=== PATIENT | male | born 1995 | race Caucasian/White ===

== ENCOUNTER 2021-06-21 21:05 | Emergency (ER) | payer MEDICAID, SELFPAY ==
[2021-06-21 21:46] VITALS: BP 122/79; PULSE 72; RESP 16; TEMP 36.8; O2SAT 99; BMI 21.7
[2021-06-21 23:31] VITALS: BP 116/57; PULSE 59; RESP 18; O2SAT 98
--- NOTE | 2021-06-22 03:10 | ED.PSYCH ---
HPI - Psych General Chief Complaint: Psychiatric Symptoms Stated Complaint: Crisis Time Seen by Provider: 06/22/21 03:09 Source: patient and family Mode of arrival: ambulatory History of Present Illness HPI Narrative: 26-year-old male presents without any significant past medical history of depression, suicidal ideation or suicide attempt and denies any auditory/visual hallucinations or suicidal ideation and states that lately he is had increased feelings of sadness, no energy to do anything, crying all the time, in states he has never felt like this before. Patient states that the symptoms started approximately 1.5 months ago and says that there is a lot of things going on in his life that he is unwilling to discuss at present. Related Data Allergies Allergy/AdvReac Type Severity Reaction Status Date / Time seasonal Allergy Unknown Uncoded 10/30/13 00:00 SEASONAL ALLERGIES Allergy Unknown UNKNOWN Uncoded 11/08/19 16:34 Review of Systems Review of Systems: Pertinent positives and negatives as stated in HPI 10 point review of systems otherwise negative. PMFSH Past Medical History Source: nursing notes reviewed Medical History No known health problems Social History Social History Advance Directives: No Advance Directives Information Provided: No Physical Exam Vital Signs: Vital Signs: Last Vital Signs Temp 98.3 F 06/21/21 21:46 Pulse 59 06/21/21 23:31 Resp 18 06/21/21 23:31 BP 116/57 L 06/21/21 23:31 Pulse Ox 98 06/21/21 23:31 BMI result Body Mass Index 21.7 VITAL SIGNS: Reviewed. GENERAL: Well developed, well nourished, in no acute distress. HEAD: Normocephalic/atraumatic EYES: PERRLA, EOMI EARS: Ext canals without abnormality OROPHARYNX: no oral lesions noted, posterior pharynx clear LUNGS: Normal breath sounds. No adventitious sounds or accessory muscle use. SpO2<98> CARDIOVASCULAR: Regular rate and rhythm without noted murmurs ABDOMEN: Soft, non-tender, non-distended with bowel sounds. MUSCULOSKELETAL: No tenderness, deformities, or effusions noted on gross inspection. EXTREMITIES: No cyanosis, clubbing or edema. SKIN: Inspection of the skin reveals no rashes NEUROLOGIC: Alert and oriented x 4. Strength and sensation to light touch were grossly intact x 4, cranial nerves 2-12 grossly intact. PSYCH: Depressed affect, tearful Course Course Course Narrative: 26-year-old male with history and clinical presentation consistent with progressive and worsening depression without suicidal ideation or AVH. Patient denies suicidal ideation present and is requesting to speak with a therapist. Reevaluation(s) Reevaluation #1: Patient placed in physician observation because the patient needed more time for evaluation by the crisis team. At the time observation was started the patient's vital signs were stable, patient is alert and oriented, neuro: Nonfocal, CV RRR, lungs clear Time: 04:09 MDM - Psych Lab Data Labs: Lab Results 06/22/21 Range/Units 03:28 Urine Fentanyl Screen Not Detected (Not Detect) Ur Barbiturates Screen Not Detected (Not Detect) Ur Phencyclidine Scrn Not Detected (Not Detect) Ur Amphetamines Screen Not Detected (Not Detect) U Benzodiazepines Scrn Not Detected (Not Detect) Urine Cocaine Screen Not Detected (Not Detect) U Marijuana (THC) Screen POSITIVE H (Not Detect) Discharge Plan Discharge Clinical Impression: Depression Patient Disposition: Still a Patient
[2021-06-22 03:50] LABS: Fentanyl, urine Not Detected (Not Detect)
[2021-06-22 03:56] LABS: Amphetamine Screen Urine Not Detected (Not Detect); Barbiturates, Urine Not Detected (Not Detect); Benzodiazepines Screen Urine Not Detected (Not Detect); Cannabinoid Screen Urine POSITIVE (Not Detect); Cocaine Screen Urine Not Detected (Not Detect); Phencyclidine Screen Urine Not Detected (Not Detect)
--- NOTE | 2021-06-22 08:02 | MHC.CARE ---
Pt was discharged prior to consult.
[2021-06-22 14:41] LABS: Opiate Screen Urine Not Detected (Not Detect)
== END 2021-06-22 05:27 | disposition home or self-care (01) ==
PROVIDERS: Emergency Provider Student in an Organized Health Care Education/Training Program
DX: F32.A Depression, unspecified (principal)
CPT/HCPCS: 80307; 99284

== ENCOUNTER 2022-07-15 14:48 | Outpatient (REF) | payer MEDICAID, SELFPAY ==
--- NOTE | ~2022-07-15 | XR_ITS ---
EXAMINATION: Left clavicle, left scapula and left shoulder x-rays CLINICAL INFORMATION: Pain post fall 2 months ago COMPARISON: None. TECHNIQUE: 2 views of the left clavicle, 2 views of the left scapula and 4 views of the left shoulder FINDINGS: Bone alignment is normal. No fracture or dislocation. The glenohumeral joint is normal. Soft tissues are normal. XR/XR scapula LT IMPRESSION: Unremarkable examination.
--- NOTE | ~2022-07-15 | XR_ITS ---
EXAMINATION: Left clavicle, left scapula and left shoulder x-rays CLINICAL INFORMATION: Pain post fall 2 months ago COMPARISON: None. TECHNIQUE: 2 views of the left clavicle, 2 views of the left scapula and 4 views of the left shoulder FINDINGS: Bone alignment is normal. No fracture or dislocation. The glenohumeral joint is normal. Soft tissues are normal. XR/XR shoulder LT min 2V IMPRESSION: Unremarkable examination.
--- NOTE | ~2022-07-15 | XR_ITS ---
EXAMINATION: Left clavicle, left scapula and left shoulder x-rays CLINICAL INFORMATION: Pain post fall 2 months ago COMPARISON: None. TECHNIQUE: 2 views of the left clavicle, 2 views of the left scapula and 4 views of the left shoulder FINDINGS: Bone alignment is normal. No fracture or dislocation. The glenohumeral joint is normal. Soft tissues are normal. XR/XR clavicle LT IMPRESSION: Unremarkable examination.
--- NOTE | ~2022-07-15 | XR_ITS ---
EXAMINATION: XR WRIST, LEFT CLINICAL INFORMATION: Pain. Fall. COMPARISON: None available. TECHNIQUE: 4 views of the left wrist. FINDINGS: The bones and soft tissues are normal. No fracture. Alignment is anatomic with normal joint spaces. No erosions or abnormal soft tissue calcifications. XR/XR wrist LT min 3V IMPRESSION: Normal left wrist.
== END 2022-07-15 14:49 | disposition home or self-care (01) ==
LOC: HO.XRAY 14:48
PROVIDERS: Visit Provider Internal Medicine
DX: M25.532 Pain in left wrist (principal); S43.492D Other sprain of left shoulder joint, subsequent encounter
CPT/HCPCS: 73000; 73010; 73030; 73110

== ENCOUNTER 2023-12-25 22:51 | Emergency (ER) | payer BC, SELFPAY ==
[2023-12-25 22:54] VITALS: BP 122/71; PULSE 62; RESP 16; TEMP 36.8; O2SAT 96; BMI 29.8
[2023-12-25 23:14] LABS: MANUAL DIFF FLAG NO
[2023-12-25 23:15] LABS: Basophils Percent Auto 0.5 % (0-2); Eosinophils Absolute Auto 0.1 X10*3/uL (0.0-0.4); Eosinophils Percent Auto 1.1 % (0-4); Hematocrit 43.2 % (42.0-52.0); Hemoglobin 14.9 g/dl (14.0-18.0); Imm Gran Abs Auto 0.03 X10*3/uL (0.00-0.03); Imm Gran Pct Auto 0.4 % (0.0-0.4); Lymphocytes Percent Auto 35.1 % (20-40); Mean Corpuscular HGB Conc 34.5 g/dl (31.0-36.0); Mean Corpuscular Hemoglobin 31.2 pg (27.0-33.0); Mean Corpuscular Volume 90.4 fL (80.0-98.0); Monocytes Absolute Auto 0.6 X10*3/uL (0.1-1.2); Monocytes Percent Auto 7.2 % (2-11); Neutrophils Absolute Auto 4.8 x10*3/uL (2.0-8.3); Neutrophils Percent Auto 55.7 % (45-73); Platelet Count 255 X10*3/uL (160-400); Red Blood Count 4.78 X10*6/uL (4.60-5.80); Red Cell Distribution Width 11.9 % (11.0-16.0); White Blood Count 8.5 X10*3/uL (4.8-10.8)
[2023-12-25 23:30] LABS: Alanine Aminotransferase 36 U/L (0-40); Albumin Level 4.6 g/dL (3.5-5.0); Alkaline Phosphatase 71 U/L (39-117); Anion Gap 17 (12-20); Aspartate Amino Transferase 28 U/L (5-37); Bilirubin Total 0.5 mg/dL (0.0-1.0); Blood Urea Nitrogen 12 mg/dL (9-16); Calcium 10.2 mg/dL (8.4-10.2); Carbon Dioxide 24 mmol/L (22-29); Chloride 104 mmol/L (96-108); Creatinine Clr Calc Pharmacy 142.6; Estimated Glomerular Filt Rate > 60; Glucose Random 82 mg/dL (60-115); Potassium 3.9 mmol/L (3.3-5.1); Sodium 141 mmol/L (135-145)
--- NOTE | 2023-12-26 00:09 | ED.GENADULT ---
HPI - General Adult General Chief complaint: General Medical Stated complaint: blood in stool Time Seen by Provider: 12/26/23 00:08 Source: patient Mode of arrival: ambulatory Limitations: no limitations History of Present Illness ED Provider: kadie LIGHT narrative: Patient no significant past medical history noticed bright red blood the stool for last 5 days intermittently no rectal pain no history of hemorrhoids Related Data Previous Rx's ?Medication ?Instructions ?Recorded hydrocortisone acetate 25 mg 25 mg HI BID #12 ea 12/26/23 rectal suppository (Anusol-HC) Allergies Allergy/AdvReac Type Severity Reaction Status Date / Time seasonal Allergy Unknown Sneezing Uncoded 12/25/23 22:55 SEASONAL ALLERGIES Allergy Unknown UNKNOWN Uncoded 12/25/23 22:55 Review of Systems Review of Systems: Yes all other systems are reviewed and are negative [facility] Past Medical History Medical History No known health problems Social History Social History Do you have a plan to hurt others: No Plan Physical Exam ED Vital Signs: Vital Signs - 24 hr 12/25/23 22:54 Temperature 98.3 F Pulse Rate 62 Respiratory Rate 16 Blood Pressure 122/71 Pulse Oximetry 96 Oxygen Delivery Method Room Air BMI result Body Mass Index 29.8 Appearance: Alert. Oriented X3. No acute distress. Eyes: No pallor or icterus ENT: Pharynx normal. Oral Mucosa moist Neck: Normal inspection. Neck supple. CVS: Normal heart rate and rhythm. Pulses normal. Respiratory: No respiratory distress. Equal air entry bilateral, Abdomen: Soft and nontender. Bowel sounds are present, no mass palpable, no CVA tenderness rectal: Small internal hemorrhoids palpable no blood on the finger Skin: Skin warm and dry. Normal skin color. Normal skin turgor. Extremities: No lower extremity edema. No calf tenderness Neuro: Oriented X 3. Medical Decision Making Medical Decision Making [facility] Narrative: Patient with rectal bleed likely hemorrhoidal last bowel movement was loose and there was no blood H&H stable will discharge patient home advised to follow with PCP as needed will prescribe Anusol suppository Differential Diagnosis Differential Diagnoses: The differential diagnosis associated with the presentation includes Hemorrhoidal bleed/abnormal blood vessels in the rectum/diverticulitis Lab Data [facility] Lab Attestation statement: I reviewed the patient's lab results. 12/25/23 23:09 12/25/23 23:09 Labs: Lab Results 12/25/23 Range/Units 23:09 WBC 8.5 (4.8-10.8) X10*3/uL RBC 4.78 (4.60-5.80) X10*6/uL Hgb 14.9 (14.0-18.0) g/dl Hct 43.2 (42.0-52.0) % MCV 90.4 (80.0-98.0) fL MCH 31.2 (27.0-33.0) pg MCHC 34.5 (31.0-36.0) g/dl RDW 11.9 (11.0-16.0) % Plt Count 255 (160-400) X10*3/uL MPV 10.0 (9.4-12.4) fL Immature Gran % (Auto) 0.4 (0.0-0.4) % Neut % (Auto) 55.7 (45-73) % Lymph % (Auto) 35.1 (20-40) % [place] % (Auto) 7.2 (2-11) % Eos % (Auto) 1.1 (0-4) % Baso % (Auto) 0.5 (0-2) % Lymph # (Auto) 3.0 (1.2-4.9) X10*3/uL [place] # (Auto) 0.6 (0.1-1.2) X10*3/uL Eos # (Auto) 0.1 (0.0-0.4) X10*3/uL Baso # (Auto) 0.0 (0.0-0.2) X10*3/uL Abs Immat Gran (auto) 0.03 (0.00-0.03) X10*3/uL Absolute Neuts (auto) 4.8 (2.0-8.3) x10*3/uL Absolute Nucleated RBC 0.000 (0.0-0.012) X10*3/uL Nucleated RBC % (auto) 0.0 (0.0-0.2) /100WBC Sodium 141 (135-145) mmol/L Potassium 3.9 (3.3-5.1) mmol/L Chloride 104 (96-108) mmol/L Carbon Dioxide 24 (22-29) mmol/L Anion Gap 17 (12-20) BUN 12 (9-16) mg/dL Creatinine 0.96 (0.5-1.4) mg/dL Estim Creat Clear Calc 142.6 Estimated GFR > 60 Random Glucose 82 (60-115) mg/dL Calcium 10.2 (8.4-10.2) mg/dL Total Bilirubin 0.5 (0.0-1.0) mg/dL AST 28 (5-37) U/L ALT 36 (0-40) U/L Alkaline Phosphatase 71 (39-117) U/L Total Protein 8.0 (6.5-8.0) g/dL Albumin 4.6 (3.5-5.0) g/dL Discharge Plan Discharge Clinical Impression: Bleeding hemorrhoids Patient Disposition: Home, Self-Care Instructions: Hemorrhoids (ED) Additional Instructions: Likely you have internal hemorrhoids causing the rectal bleed Avoid constipation/straining Use suppository twice a day as prescribed if bleeding continues Prescriptions: New hydrocortisone acetate [Anusol-HC] 25 mg suppository 25 mg HI BID Qty: 12 0RF Stand Alone Forms: Work/School Release Print Language: Latvian
[2023-12-26 00:28] VITALS: BP 116/68; PULSE 64; RESP 16; TEMP 36.8; O2SAT 98
[2023-12-26 00:36] VITALS: BP 116/68; PULSE 64; RESP 16; TEMP 36.8; O2SAT 98
== END 2023-12-26 00:37 | disposition home or self-care (01) ==
PROVIDERS: Emergency Provider Internal Medicine
DX: K62.5 Hemorrhage of anus and rectum (principal); K64.9 Unspecified hemorrhoids; K62.89 Other specified diseases of anus and rectum
CPT/HCPCS: 36415; 80053; 85025; 99283

== ENCOUNTER 2024-03-25 13:54 | Emergency (ER) | payer BC, SELFPAY ==
[2024-03-25 14:12] VITALS: BP 141/65; PULSE 75; RESP 16; TEMP 36.3; O2SAT 99; BMI 28.9
--- NOTE | 2024-03-25 14:17 | ED_ITS ---
HPI - General Adult General Chief complaint: Upper Respiratory Symptoms Stated complaint: sore throat Time Seen by Provider: 03/25/24 15:07 Source: patient Mode of arrival: ambulatory Limitations: no limitations History of Present Illness ED Provider: Santiago Hopper HPI narrative: 29-year-old male with no past medical history presents to ED for sore throat without any chest pain or shortness of breath or coughing up blood. Patient denies any coughing. Patient denies any drooling or change in voice. Patient denies any abdominal pain nausea vomiting Related Data Previous Rx's ?Medication ?Instructions ?Recorded hydrocortisone acetate 25 mg 25 mg MI BID #12 ea 12/26/23 rectal suppository (Anusol-HC) naproxen 500 mg tablet 500 mg PO BID PRN pain 7 days #14 03/25/24 tabs Allergies Allergy/AdvReac Type Severity Reaction Status Date / Time seasonal Allergy Unknown Sneezing Uncoded 03/25/24 14:14 SEASONAL ALLERGIES Allergy Unknown UNKNOWN Uncoded 03/25/24 14:14 Review of Systems Review of Systems: Sore throat body aches Yes all other systems are reviewed and are negative PMFSH Past Medical History Medical History No known health problems Social History Social History Advance Directives: No Advance Directives Information Provided: Yes Physical Exam ED Vital Signs: Vital Signs - 24 hr 03/25/24 14:12 03/25/24 18:28 03/25/24 19:12 Temperature 97.3 F 97.7 F 97.7 F Pulse Rate 75 76 76 Respiratory Rate 16 18 18 Blood Pressure 141/65 H 138/72 138/72 Pulse Oximetry 99 99 99 Oxygen Delivery Method Room Air Room Air Room Air BMI result Body Mass Index 28.9 Const General: cooperative, healthy appearing, comfortable, no acute distress, well developed, alert and awake Orientation/consciousness: patient oriented x3 HENMT Head: Yes normal to inspection, Yes No palpable skull fracture present, Yes normocephalic and Yes atraumatic Ears: hearing grossly normal bilaterally, external ears normal, TM's normal bilaterally, TM normal on the right, TM normal on the left, EAC's normal, mastoids normal and no periauricular adenopathy Throat: Yes posterior oropharynx normal, Yes tonsils normal and Yes uvula midline Eyes General: appearance normal, both eyes and all related structures Neck Neck: Yes normal visual inspection, Yes full ROM, Yes no lymphadenopathy, Yes no meningeal signs, Yes trachea midline, Yes supple, No anterior neck swelling and No tender Chest Chest palpation & inspection: normal inspection of the chest and normal palpati on of entire chest wall Resp Effort & Inspection: normal respiratory effort and able to speak in complete sentences Auscultation: clear to auscultation bilaterally Cardio Jugular venous distension: no JVD Heart sounds: S1 normal heart sound present and S2 normal heart sound present GI Inspection: Yes normal to inspection Palpation (GI): Soft to palpation, not firm, nontender, no guarding and not rigid General: Yes no CVA tenderness Back/Spine/Pelvis Back: no CVA tenderness and No back tenderness Skin General skin exam: no rashes or lesions noted, elasticity normal and turgor normal Neuro General: patient oriented x3, gait normal, tone normal, moves all extremities, Normal light touch and pain sensation, no meningeal signs, no focal motor deficits, CN's II-XI intact bilaterally and normal sensation to monofilament Extrem General: Yes normal to inspection, Yes full ROM and Yes capillary refill normal Psych Appearance: grossly normal, well kempt and not disheveled Course Course Course Narrative: RME: 29-year-old male presents to ED for sore throat without any coughing, chest pain, shortness of breath. Patient states slight ear discomfort. SARs strep ordered. Medications Administered Discontinued Medications Generic Name Dose Route Start Last Admin Trade Name Freq PRN Reason Stop Dose Admin Naproxen 500 mg 03/25/24 19:07 03/25/24 19:08 Naproxen 500 Mg Tablet PO 03/25/24 19:08 500 mg ONCE ONE Administration Medical Decision Making Medical Decision Making [facility] Narrative: [age] male presents to ED for sore throat and body aches. Patient well- appearing. Negative for any neck swelling. Not suspect any Juice's angina, retropharyngeal abscess, peritonsillar abscess, epiglottitis, anaphylaxis, respiratory distress, hypoxia, myocardial infarction, PE, GI bleed, pneumonia, OR, CHF, or any other life-threatening etiology. Patient explained worrisome signs and informed to return to the ED immediately. Differential Diagnosis Differential Diagnoses: The differential diagnosis associated with the presentation includes (SARs strep COVID RSV influenza) Admission/Observation Consideration of admission/observation: Escalation of care including admission/observation considered Lab Data Labs: Lab Results 03/25/24 Range/Units 14:37 Influenza Type A (PCR) NEGATIVE (Negative) Influenza Type B (PCR) NEGATIVE (Negative) RSV RNA Qual (PCR) NEGATIVE (Negative) SARS-CoV-2 RNA (RT-PCR) NEGATIVE (Negative) S. pyogenes GrpA KAREN Negative (Negative) Independent Historian Clinical information obtained from an independent historian. History obtained from or confirmed by: Other (Patient) Prescription Management I considered prescription management with: Pain Medication Discharge Plan Discharge Clinical Impression: Pharyngitis Patient Disposition: Home, Self-Care Instructions: Pharyngitis (ED) Additional Instructions: Your RSV, COVID, influenza, and strep came back negative. Recommend follow-up with primary care provider. Return to the ED immediately for any drooling, change in voice, neck swelling, chest pain, shortness of breath, inability tolerate solid food/liquid, or any other concerning symptoms. Prescriptions: New naproxen 500 mg tablet 500 mg PO BID PRN (Reason: pain) 7 Days Qty: 14 0RF No Action hydrocortisone acetate [Anusol-HC] 25 mg suppository 25 mg MI BID Qty: 12 0RF Stand Alone Forms: Work/School Release Interventions: ED Discharge Assessment Last Done: 03/25/24 19:12 Discharge Date/Time: 03/25/24 19:13 Print Language: Jordanian
[2024-03-25 15:05] LABS: IDNOW Serial# 58CA691E; Strep A Nucleic Acid Negative (Negative)
--- OUTSIDE RECORDS SUMMARY | 2024-03-25 17:00 | XMS_ITS | Clinical Summary ---
Author Organization [facility] Address [address] [place] [address] Phone Care Team Providers Care Bedspread Folder Name Role Phone Physician, No Pcp Primary Care Provider Unavaila ble Allergies No known active allergies Encounters Date Type Department Care Team Description 03/11/2024 7:28 AM EST - 03/11/2024 10:03 AM EST Emergency [facility] Emergency [address] [place] [address] Gonorrhea (Primary Dx) Discharge Disposition: Home or Self Care from Last 3 Months Social History Tobacco Use Types Packs/Day Years Used Date Smoking Tobacco: Never Assessed Sex and Gender Information Value Date Recorded Sex Assigned at Not on file Gender Identity Not on file Sexual Orientation Not on file Job Start Date Occupation Industry Not on file Not on file Not on file Obstetrics History Last Filed Vital Signs Vital Sign Reading Time Taken Comments Blood Pressure 119/79 03/11/2024 5:16 AM EST Pulse 81 03/11/2024 5:16 AM EST Temperature 36.5 ??C (97.7 ??F) 03/11/2024 5:16 AM ES T Respiratory Rate 16 03/11/2024 5:16 AM EST Oxygen Saturation 95% 03/11/2024 5:16 AM EST Inhaled Oxygen Concentration - - Weight 90.7 kg (200 lb) 03/11/2024 5:16 AM EST Height 182.9 cm (6') 03/11/2024 5:16 AM EST Body Mass Index 27.12 03/11/2024 5:16 AM EST Plan of Treatment Health Maintenance Due Date Last Done Comments DTaP,Tdap,and Td Vaccines (1 - Tdap) 01/19/2016 Hepatitis B Vaccines (1 of 3 - 19+ 3-dose series) 01/19/2016 Depression Screening 01/24/2022 HIV Screening 01/24/2022 Hepatitis C Screening 01/24/2022 Social Influencers of Health Screening 01/24/2022 COVID-19 Vaccine (2023-2 5 season) 2023 Influenza Vaccine (#1) 2023 HIB Vaccines Aged Out No longer eligi ble based on patient's age to complete this topic HPV Vaccines Aged Out No longer eligi ble based on patient's age to complete this topic Hepatitis A Vaccines Aged Out No long er eligible based on patient's age to complete this topic IPV Vaccines Aged Out No longer eligi ble based on patient's age to complete this topic MMR Vaccines Aged Out No longer eligi ble based on patient's age to complete this topic Meningococcal ACWY Vaccine Aged Out N o longer eligible based on patient's age to complete this topic Pneumococcal Vaccine: Pediat rics (0 to 5 Years) and At-Risk Patients (6 to 64 Years) Aged Out No longer eligible b ased on patient's age to complete this topic RSV Immunization Patients Un navin 20 months Aged Out No longer eligible b ased on patient's age to complete this topic Varicella Vaccines Aged Out No longer eligible based on patient's age to complete this topic Procedures Procedure Name Priority Date/Time Associated Diagnosis Comments TREPONEMA PALLIDUM ANTIBODY WITH REFLEX TO RPR AND PARTICLE AGGLUTINATION STAT 03/11/2024 8:42 AM EST AGOSTO URINE CULTURE TUBE STAT 03/11/2024 5:41 AM EST URINALYSIS WITH REFLEX MICROSCOPIC AND CULTURE STAT 03/11/2024 5:41 AM EST URINALYSIS WITH REFLEX MICROSCOPIC AND CULTURE STAT 03/11/2024 5:41 AM EST CULTURE URINE STAT 03/11/2024 5:41 AM EST CHLAMYDIA TRACHOMATIS AND NEISSERIA GONORRHOEAE PCR STAT 03/11/2024 5:41 AM EST from Last 3 Months Results * Treponema pallidum antibody with reflex to RPR and particle agglutination (03/11/2024 8:42 AM EST) T. Pallidum Antibodies Negative Negative LAB CHEMISTRY METHOD 03/11/2024 9:34 AM [facility] Blood Venous blood specimen / Unknown Venipuncture / Unknown 03/11/2024 8:42 AM EST 03/11/2024 8:48 AM EST Lina HAGAN LAB BLOOD RADHA AGUILAR [facility] [address] [place] [address], * (ABNORMAL) Urinalysis with reflex microscopic and culture (03/11/2024 5:41 AM EST) [facility] [place] Urine 1.030 1.003 - 1.030 LAB URINALYSIS - AUTOMATED METHOD 03/11/2024 6:28 AM [facility] pH, Urine 5.5 5.0 - 8.0 pH LAB URINALYSIS - AUTOMATED METHOD 03/11/2024 6:28 AM [facility] Leukocytes, Urine Large(A) Negative LAB URINALYSIS - AUTOMATED METHOD 03/11/2024 6:28 AM [facility] Nitrite, Urine Negative Negative LAB URINALYSIS - AUTOMATED METHOD 03/11/2024 6:28 AM [facility] Protein, Urine 30(A) <=Trace mg/dL LAB URINALYSIS - AUTOMATED METHOD 03/11/2024 6:28 AM [facility] Glucose, Urine Negative Negative mg/dL LAB URINALYSIS - AUTOMATED METHOD 03/11/2024 6:28 AM [facility] Ketones, Urine Trace(A) Negative mg/dL LAB URINALYSIS - AUTOMATED METHOD 03/11/2024 6:28 AM [facility] Urobilinogen, Urine 1.0 0.2 - 1.0 mg/dL LAB URINALYSIS - AUTOMATED METHOD 03/11/2024 6:28 AM [facility] Bilirubin, Urine Negative Negative LAB URINALYSIS - AUTOMATED METHOD 03/11/2024 6:28 AM [facility] Blood, Urine Trace(A) Negative LAB URINALYSIS - AUTOMATED METHOD 03/11/2024 6:28 AM [facility] RBC, Urine 2.7 0 - 4 /HPF LAB URINALYSIS - AUTOMATED METHOD 03/11/2024 6:28 AM [facility] WBC, Urine 983.2(H) 0 - 4 /HPF LAB URINALYSIS - AUTOMATED METHOD 03/11/2024 6:28 AM [facility] Squamous Epithelial, Urine 9 0 - 60 /LPF LAB URINALYSIS - AUTOMATED METHOD 03/11/2024 6:28 AM [facility] Bacteria, Urine Negative Negative /HPF LAB URINALYSIS - AUTOMATED METHOD 03/11/2024 6:28 AM [facility] Hyaline Casts, Urine 0.8 0 - 3 /LPF LAB URINALYSIS - AUTOMATED METHOD 03/11/2024 6:28 AM [facility] Urine Urine specimen obtained by clean catch procedure / Unknown Non-blood Collection / Unknown 03/11/2024 5:41 AM EST 03/11/2024 5:47 AM EST Scot Jesus Alberto Chaves MD LAB URINE ORDERABLES [facility] [address] [place] [address], * Agosto urine culture tube (03/11/2024 5:41 AM EST) Extra Tube Hold for add-ons. 03/11/2024 7:01 AM [facility] Comment:Auto resulted. Urine Urine specimen obtained by clean catch procedure / Unknown Non-blood Collection / Unknown 03/11/2024 5:41 AM EST 03/11/2024 5:47 AM EST Carlos Chaves MD LAB URINE ORDERABLES Performing Organization Address City/[facility]/ZIP Co de Phone Number [facility] [address] [place] [address], [place] [phone] * (ABNORMAL) Chlamydia trachomatis and Neisseria gonorrhoeae molecular study (03/11/2024 5:41 AM EST) Pathologist [facility] Neisseria gonorrhoeae PCR Positive(A) Negative LAB MOLECULAR DIAGNOSTICS METHOD 03/11/2024 9:28 AM EST [facility] Chlamydia trachomatis PCR Negative Negative LAB MOLECULAR DIAGNOSTICS METHOD 03/11/2024 9:28 AM EST [facility] Swab Urine specimen from urethra / Unknown Non-blood Collection / Unknown 03/11/2024 5:41 AM EST 03/11/2024 5:47 AM EST Carlos Chaves MD LAB MICROBIOLOGY - G ENERAL ORDERABLES Performing Organization Address [facility]/ZIP Co de Phone Number [facility] [address] [place] [address], [place] [phone] * Culture urine (03/11/2024 5:41 AM EST) Pathologist [facility] Culture, Urine No growth 03/12/2024 1:42 PM EST [facility] Urine Urine specimen obtained by clean catch procedure / Unknown Non-blood Collection / Unknown 03/11/2024 5:41 AM EST 03/11/2024 6:27 AM EST Carlos Chaves MD LAB MICROBIOLOGY - G ENERAL ORDERABLES Performing Organization Address [facility]/ZIP Co de Phone Number [facility] [address] [place] [address], [place] [phone] from Last 3 Months Care Teams Bedspread Folder Relationship Specialty Start Date End Date Physician, No Pcp PCP - General 03/11/24
--- OUTSIDE RECORDS SUMMARY | 2024-03-25 17:00 | XMS_ITS | Clinical Summary ---
Author Organization [employer] Address [address] [place] [address] [address] [place] [address] Care Team Providers Care Family Program Specialist Name Role Phone Unavailable Primary Care Provider Unavailabl e Allergies No known active allergies Active Problems Problem Noted Date Diagnosed Date Sprain of shoulder, left 07/13/2022 Assessment & Plan (07/13/2022 8:26 PM EDT): Ro luxation,order Xrays Use OTC tylenol, diclofenac gel and heat to affected area Order PT since sxs do not improve after 2w. Out of work tomorrow Pain of wrist after trauma 07/13/2022 Assessment & Plan (07/13/2022 8:25 PM EDT): Ro scaphoid fracture, order Xray Get a wrist splint Take tylenol prn and fu after Xrays Family History Medical History Relation Name Comments Diabetes type II Father Breast cancer Mother Diabetes type II Mother Heart attack Mother Relation Name Status Comments Father Mother Social History Tobacco Use Types Packs/Day Years Used Date Smoking Tobacco: Never Passive Smoke Exposure: Never Smokeless Tobacco: Never Sex and Gender Information Value Date Recorded Sex Assigned at Male 07/13/2022 4:12 PM EDT Legal Sex Male 4:09 PM EDT Gender Identity Male 07/13/2022 4:12 PM EDT Sexual Orientation Don't know 07/13/2022 4: 12 PM EDT Last Filed Vital Signs Vital Sign Reading Time Taken Comments Blood Pressure 128/78 07/13/2022 4:58 PM EDT Pulse 78 07/13/2022 4:58 PM EDT Temperature 36.7 ??C (98.1 ??F) 07/13/2022 4:58 PM ED T Respiratory Rate 18 07/13/2022 4:58 PM EDT Oxygen Saturation 98% 07/13/2022 4:58 PM EDT Inhaled Oxygen Concentration - - Weight 86.6 kg (191 lb) 07/13/2022 4:58 PM EDT Height 181.6 cm (5' 11.5 ) 07/13/2022 4:58 PM ED T Body Mass Index 26.27 07/13/2022 4:58 PM EDT Plan of Treatment Health Maintenance Due Date Last Done Comments Depression Screening 1997 HIV Screening 1997 SDOH Screening 1997 Alcohol/Substance Use Screening 2009 Family Planning (PISQ) 01/19/2012 Hepatitis C Screening 2015 DTaP/Tdap/Td Vaccines (1 - Tdap) 01/19/2016 Hepatitis B Vaccines (1 of 3 - 19+ 3-dose series) 01/19/2016 Tobacco Screening 07/14/2023 07/13/2022 COVID-19 Vaccine (1 - 2023-2 5 season) 2023 Influenza Vaccine (#1) 2023 Zoster Vaccines (1 of 2) 2047 RSV Patients and Pa tients Aged 60 years or older (1 - 1-dose 75+ series) 01/19/2072 HIB Vaccines Aged Out No longer eligi [...] patient's age to complete this topic Meningococcal Vaccine Aged Out No demian ksenia eligible based on patient's age to complete this topic Pneumococcal Vaccine: Pediat rics (0 to 5 Years) and At-Risk Patients (6 to 49) Years) Aged Out No longer elig ible based on patient's age to complete this topic RSV under 20 months Aged Out No longe r eligible based on patient's age to complete this topic Rotavirus Vaccines Aged Out No longer eligible based on patient's age to complete this topic Insurance [facility] C3
--- OUTSIDE RECORDS SUMMARY | 2024-03-25 17:00 | XMS_ITS | Encounter Summary ---
Author Organization [facility] Address [id number] [place] [id number] Care Team Providers Care Customer Advocate Name Role Phone Physician, No Pcp Primary Care Provider Unavaila ble Reason for Visit * Reason Comments Male Problem Penile discharge and pain with urination Encounter Details Date Type Department Care Team (Late st Contact Info) Description 03/11/2024 7:28 AM EST - 03/11/2024 10:03 AM EST Emergency [facility] Emergency [address] [place] [address] Gonorrhea (Primary Dx) Discharge Disposition: Home or Self Care Social History Tobacco Use Types Packs/Day Years Used Date Smoking Tobacco: Never Assessed Sex and Gender Information Value Date Recorded Sex Assigned at Not on file Gender Identity Not on file Sexual Orientation Not on file Job Start Date Occupation Industry Not on file Not on file Not on file documented as of this encounter Last Filed Vital Signs Vital Sign Reading [...] Mass Index 27.12 03/11/2024 5:16 AM EST documented in this encounter Discharge Instructions * Attachments The following attachments cannot be sent through Care Everywhere. * Gonorrhea (Mongolian) documented in this encounter Discharge Disposition Disposition Code Departure Means Destination Comment s Home or Self Care documented in this encounter Progress Notes * Sapphire Hernandez RN - 03/11/2024 10:03 AM EST GC resulted in er pt aware of results pt medicated per protocol by provider * Slime Franco RN - 03/11/2024 5:19 AM EST Pt reports 2 days of yellow penile discharge and painful urination. States he thinks he might have gonorrrhea. States that his recent partners have tested negative for any STIs. * BENTLEY Muniz - 03/11/2024 5:10 AM EST Emergency Medicine Note Patient Name: Reginald Osullivan Initial Evaluation: 03/11/2024 : 1995 Patient's PCP: No primary care provider on file. Emergency Physician: BENTLEY Muniz History of Present Illness Chief Complaint: Chief Complaint Patient presents with Male Problem Penile discharge and pain with urination HPI: 39-year-old male here today states he has penile discharge with pain. Denies any fevers or anychills. Gradual onset of symptoms. Denies any abdominal pain nauseousness or vomiting. Gradual onset of symptoms. ROS: I have performed a ROS with the pertinent positives and negatives documented in the history ofpresent illness. Previous History History reviewed. No pertinent past medical history. History reviewed. No pertinent surgical history. No family history on file. has No Known Allergies. No current facility-administered medications on file prior to encounter. No current outpatient medications on file prior to encounter. Physical Exam ED Triage Vitals [03/11/24 0516] Temp Heart Rate Resp BP 36.5 ??C (97.7 ??F) 81 16 119/79 SpO2 Temp Source Heart Rate Source Patient Position 95 % Oral Monitor Sitting BP Location FiO2 (%) Left arm -- Physical Exam Vitals and nursing note reviewed. Constitutional: Appearance: Normal appearance. HENT: Head: Normocephalic. Nose: Nose normal. Eyes: Extraocular Movements: Extraocular movements intact. Pupils: Pupils are equal, round, and reactive to light. Cardiovascular: Rate and Rhythm: Normal rate and regular rhythm. Pulmonary: Effort: Pulmonary effort is normal. Breath sounds: Normal breath sounds. Musculoskeletal: General: Normal range of motion. Cervical back: Normal range of motion and neck supple. Skin: General: Skin is warm. Capillary Refill: Capillary refill takes less than 2 seconds. Neurological: General: No focal deficit present. Mental Status: He is alert and oriented to person, place, and time. Psychiatric: Mood and Affect: Mood normal. Behavior: Behavior normal. Results Labs Reviewed CHLAMYDIA TRACHOMATIS AND NEISSERIA GONORRHOEAE MOLECULAR STUDY - Abnormal Result Value Neisseria gonorrhoeae PCR Positive (*) Chlamydia trachomatis PCR Negative URINALYSIS WITH REFLEX MICROSCOPIC AND CULTURE - Abnormal Specific [place] Urine 1.030 pH, Urine 5.5 Leukocytes, Urine Large (*) Nitrite, Urine Negative Protein, Urine 30 (*) Glucose, Urine Negative Ketones, Urine Trace (*) Urobilinogen, Urine 1.0 Bilirubin, Urine Negative Blood, Urine Trace (*) RBC, Urine 2.7 WBC, Urine 983.2 (*) Squamous Epithelial, Urine 9 Bacteria, Urine Negative Hyaline Casts, Urine 0.8 TREPONEMA PALLIDUM ANTIBODY WITH REFLEX TO RPR AND PARTICLE AGGLUTINATION - Normal T. Pallidum Antibodies Negative CULTURE URINE URINALYSIS WITH REFLEX MICROSCOPIC AND CULTURE Narrative: The following orders were created for panel order Urinalysis with reflex microscopic and culture. Procedure Abnormality Status --------- ------ Urinalysis with reflex m...[[id number]] Abnormal Final result Agosto urine culture tube[[id number]] Final result Please view results for these tests on the individual orders. Abnormal Labs Reviewed CHLAMYDIA TRACHOMATIS AND NEISSERIA GONORRHOEAE MOLECULAR STUDY - Abnormal; Notable for the following components: Result Value Neisseria gonorrhoeae PCR Positive (*) All other components within normal limits URINALYSIS WITH REFLEX MICROSCOPIC AND CULTURE - Abnormal; Notable for the following components: Leukocytes, Urine Large (*) Protein, Urine 30 (*) Ketones, Urine Trace (*) Blood, Urine Trace (*) WBC, Urine 983.2 (*) All other components within normal limits No orders to display I have discussed the incidental/abnormal imaging and/or lab abnormalities with the patient and haveinstructed them the need for further evaluation and workup with their primary care doctor. I have provided the patient with a paper copy of the abnormality. The laboratory results, imaging results and other diagnostic exam results were reviewed in the EMR. EKG Interpretation Critical Care Time None ? Differential Diagnosis Gonorrhea Chlamydia UTI Syphilis Medical Decision Making Patient well-appearing nontoxic non-lethargic vital signs are stable. About a leuks noted in urine.Pending RPR. Positive for gonorrhea. Patient given azithromycin 500 mg IM discharged home follow-up with your primary care doctor Medications cefTRIAXone (ROCEPHIN) injection 500 mg (500 mg intramuscular Given 03/11/24 0843) Clinical Impressions as of 03/11/24 0951 Gonorrhea Amount and/or Complexity of Data Reviewed External Data Reviewed: Encounters reviewed in Chart Review. Details: Labs: ordered. Decision-making details documented in ED Course. Radiology: ordered. Decision-making details documented in ED Course. ECG/medicine tests: ordered. Decision-making details documented in ED Course. Procedures Procedures Diagnosis 1. Gonorrhea Disposition Discharge ED Prescriptions None Physician Attestation BENTLEY Muniz 03/11/24 0829 BENTLEY Muniz 03/11/24 0925 BENTLEY Muniz 03/11/24 0951 documented in this encounter Plan of Treatment Not on file documented as of this encounter Procedures Procedure Name Priority Date/Time Associated Diagnosis Comments TREPONEMA PALLIDUM ANTIBODY WITH REFLEX TO RPR AND PARTICLE AGGLUTINATION STAT 03/11/2024 8:42 AM EST URINALYSIS WITH REFLEX MICROSCOPIC AND CULTURE STAT 03/11/2024 5:41 AM EST AGOSTO URINE CULTURE TUBE STAT 03/11/2024 5:41 AM EST CHLAMYDIA TRACHOMATIS AND NEISSERIA GONORRHOEAE PCR STAT 03/11/2024 5:41 AM EST URINALYSIS WITH REFLEX MICROSCOPIC AND CULTURE STAT 03/11/2024 5:41 AM EST CULTURE URINE STAT 03/11/2024 5:41 AM EST documented in this encounter Results * Treponema pallidum antibody with reflex to RPR and particle agglutination (03/11/2024 8:42 AM EST) Pathologist [facility] T. Pallidum Antibodies Negative Negative LAB CHEMISTRY METHOD 03/11/2024 9:34 AM EST [facility] Blood Venous blood specimen / Unknown Venipuncture / Unknown 03/11/2024 8:42 AM EST 03/11/2024 8:48 AM EST Lina HAGAN LAB BLOOD ORDE LAUREN Performing Organization Address City/[facility]/ZIP Co de Phone Number [facility] [address] [place] [address], * Culture urine (03/11/2024 5:41 AM EST) [facility] Culture, Urine No growth 03/12/2024 1:42 PM EST [facility] Urine Urine specimen obtained by clean catch procedure / Unknown Non-blood Collection / Unknown 03/11/2024 5:41 AM EST 03/11/2024 6:27 AM EST Carlos Chaves MD LAB MICROBIOLOGY - G ENERAL ORDERABLES Performing Organization Address City/[facility]/ZIP Co de Phone Number [facility] [address] [place] [address], [place] [phone] * Agosto urine culture tube (03/11/2024 5:41 AM EST) [facility] Extra Tube Hold for add-ons. 03/11/2024 7:01 AM EST [facility] Comment:Auto resulted. Urine Urine specimen obtained by clean catch procedure / Unknown Non-blood Collection / Unknown 03/11/2024 5:41 AM EST 03/11/2024 5:47 AM EST Scot Jesus Alberto Chaves MD LAB URINE ORDERABLES [facility] [address] [place] [address], [place] [phone] * (ABNORMAL) Urinalysis with reflex microscopic and culture (03/11/2024 5:41 AM EST) Specific [place] Urine 1.030 1.003 - 1.030 LAB URINALYSIS - AUTOMATED METHOD 03/11/2024 6:28 AM [facility] pH, Urine 5.5 5.0 - 8.0 pH LAB URINALYSIS - AUTOMATED METHOD 03/11/2024 6:28 AM [facility] Leukocytes, Urine Large(A) Negative LAB URINALYSIS - AUTOMATED METHOD 03/11/2024 6:28 AM [facility] Nitrite, Urine Negative Negative LAB URINALYSIS - AUTOMATED METHOD 03/11/2024 6:28 AM [facility] Protein, Urine 30(A) <=Trace mg/dL LAB URINALYSIS - AUTOMATED METHOD 03/11/2024 6:28 AM [facility] Glucose, Urine Negative Negative mg/dL LAB URINALYSIS - AUTOMATED METHOD 03/11/2024 6:28 AM [facility] Ketones, Urine Trace(A) Negative mg/dL LAB URINALYSIS - AUTOMATED METHOD 03/11/2024 6:28 AM [facility] Urobilinogen, Urine 1.0 0.2 - 1.0 mg/dL LAB URINALYSIS - AUTOMATED METHOD 03/11/2024 6:28 AM [facility] Bilirubin, Urine Negative Negative LAB URINALYSIS - AUTOMATED METHOD 03/11/2024 6:28 AM [facility] Blood, Urine Trace(A) Negative LAB URINALYSIS - AUTOMATED METHOD 03/11/2024 6:28 AM [facility] RBC, Urine 2.7 0 - 4 /HPF LAB URINALYSIS - AUTOMATED METHOD 03/11/2024 6:28 AM [facility] WBC, Urine 983.2(H) 0 - 4 /HPF LAB URINALYSIS - AUTOMATED METHOD 03/11/2024 6:28 AM [facility] Squamous Epithelial, Urine 9 0 - 60 /LPF LAB URINALYSIS - AUTOMATED METHOD 03/11/2024 6:28 AM [facility] Bacteria, Urine Negative Negative /HPF LAB URINALYSIS - AUTOMATED METHOD 03/11/2024 6:28 AM [facility] Hyaline Casts, Urine 0.8 0 - 3 /LPF LAB URINALYSIS - AUTOMATED METHOD 03/11/2024 6:28 AM [facility] Urine Urine specimen obtained by clean catch procedure / Unknown Non-blood Collection / Unknown 03/11/2024 5:41 AM EST 03/11/2024 5:47 AM EST Carlos Chaves MD LAB URINE ORDERABLES [facility] [address] [place] [address], * (ABNORMAL) Chlamydia trachomatis and Neisseria gonorrhoeae molecular study (03/11/2024 5:41 AM EST) Neisseria gonorrhoeae PCR Positive(A) Negative LAB MOLECULAR DIAGNOSTICS METHOD 03/11/2024 9:28 AM EST [facility] Chlamydia trachomatis PCR Negative Negative LAB MOLECULAR DIAGNOSTICS METHOD 03/11/2024 9:28 AM [facility] Swab Urine specimen from urethra / Unknown Non-blood Collection / Unknown 03/11/2024 5:41 AM EST 03/11/2024 5:47 AM EST Carlos Chaves MD LAB MICROBIOLOGY - G ENERAL ORDERABLES [facility] [address] [place] [address], documented in this encounter Visit Diagnoses Diagnosis Gonorrhea- Primary Gonococcal infection (acute) of lower genitourinary tract documented in this encounter Administered Medications Inactive Administered Medications - up to 3 most recent administrations Medication Order MAR Action Action Date Dose Rate Site cefTRIAXone (ROCEPHIN) injection 500 mg 500 mg, intramuscular, Once, On 03/11/24 at 0831, For 1 dose, Indication: Sexually Transmitted Infection Given 03/11/2024 8:43 AM EST 500 mg Left Anterior Thigh documented in this encounter Active and Recently Administered Medications Times are shown in EST. Scheduled Medication Order 03/09/2024 03/10/2024 03/11/2024 cefTRIAXone (ROCEPHIN) injection 500 mg (COMPLETED) 500 mg, intramuscular, Once, On 03/11/24 at 0831, For 1 dose, Indication: Sexually Transmitted Infection 0843 (Given - Provid er: Dede Ramirez RN) documented in this encounter Orders Medications Ordered That Nick ht Not Have Been Administered Count Last Ordered Date First Ordered Date cefTRIAXone (ROCEPHIN) injection 500 mg 1 0 03/11/2024 documented in this encounter Care Teams Customer Advocate Relationship Specialty Start Date End Date Physician, No Pcp PCP - General 03/11/24 documented as of this encounter
[2024-03-25 18:05] LABS: Influenza A PCR NEGATIVE (Negative); Influenza B PCR NEGATIVE (Negative); Resp Syncy Virus RNA Qual PCR NEGATIVE (Negative); SARS COV2 PCR INHOUSE NEGATIVE (Negative)
[2024-03-25 18:28] VITALS: BP 138/72; PULSE 76; RESP 18; TEMP 36.5; O2SAT 99
[2024-03-25] MEDS: NaPROXEN 500 MG TABLET PO (19:08)
[2024-03-25 19:12] VITALS: BP 138/72; PULSE 76; RESP 18; TEMP 36.5; O2SAT 99
== END 2024-03-25 19:13 | disposition home or self-care (01) ==
PROVIDERS: Physician Assistant; Emergency Provider Emergency Medicine
DX: J02.9 Acute pharyngitis, unspecified (principal); Z03.818 Encounter for observation for suspected exposure to other biological agents ruled out
CPT/HCPCS: 0241U; 87651; 99283

== ENCOUNTER 2024-03-28 11:58 | Emergency (ER) | payer BC, SELFPAY ==
[2024-03-28 12:20] VITALS: BP 121/87; PULSE 72; RESP 20; TEMP 36.8; O2SAT 98; BMI 28.1
--- NOTE | 2024-03-28 12:23 | ED.GENADULT ---
HPI - General Adult General Chief complaint: Upper Respiratory Symptoms Stated complaint: not feeling better, seen 2/2 Time Seen by Provider: 03/28/24 20:42 Source: patient and old records reviewed Mode of arrival: ambulatory Limitations: no limitations History of Present Illness ED Provider: MARINA HPI narrative: 29 yo male with no sig PMH here with sore throat x 4 days no fevers but reports chills. He notes his throat is more painful and it hurts to swallow he was just seen here neg strep and viral panel DC with naproxen but he reports it is getting worse. MD complaint: sore throat Onset (ago): day(s) (4 days) Location: mouth Radiation: non-radiation Severity: moderate Quality: aching Pain Consistency: intermittent Relieving factors: none Exacerbating factors: other (swallowing) Associated symptoms: fever/chills Treatments prior to arrival: NSAID Related Data Previous Rx's ?Medication ?Instructions ?Recorded hydrocortisone acetate 25 mg 25 mg VA BID #12 ea 12/26/23 rectal suppository (Anusol-HC) naproxen 500 mg tablet 500 mg PO BID PRN pain 7 days #14 03/25/24 tabs amoxicillin 875 mg-potassium 1 tab PO BID #20 tabs 03/28/24 clavulanate 125 mg tablet Allergies Allergy/AdvReac Type Severity Reaction Status Date / Time seasonal Allergy Unknown Sneezing Uncoded 03/28/24 12:23 SEASONAL ALLERGIES Allergy Unknown UNKNOWN Uncoded 03/28/24 12:23 Review of Systems Review of Systems: Constitutional : No Fever, pos Chills, No Fatigue ENT/Mouth : pos sore throat, No Rhinorrhea Eyes: No Eye Pain, No Swelling, No Redness Cardiovascular : No Chest Pain, No SOB, No Dyspnea on Exertion Respiratory : No Cough, No Sputum Gastrointestinal : No Nausea, No Vomiting, No Diarrhea, No abdominal Pain Genitourinary : No Dysuria, No Urinary Frequency, No Hematuria, Musculoskeletal : No joint pain, No Myalgias, No Joint Swelling Skin : No Skin Lesions, No rash Neuro : No Weakness, No Numbness, No Dizziness, no Headache All other systems reviewed and are negative PMFSH Past Medical History Attestation statement: The following information was validated with the patient. Source: old records reviewed Medical History No known health problems Social History Social History Alcohol intake: current Substance Use Type: Marijuana Physical Exam ED Vital Signs: Vital Signs - 24 hr 03/28/24 12:20 03/28/24 20:37 Temperature 98.3 F 97.9 F Pulse Rate 72 74 Respiratory Rate 20 18 Blood Pressure 121/87 132/64 Pulse Oximetry 98 97 Oxygen Delivery Method Room Air Room Air BMI result Body Mass Index 28.1 Appearance: Alert. Oriented X3. No acute distress. Eyes: Pupils equal, round and reactive to light. ENT: Pharynx moderate erythema with moderate exudates and swelling, uvula is midline, no drooling Neck: Normal inspection. Neck supple. CVS: Normal heart rate and rhythm. Pulses normal. Respiratory: No respiratory distress. Breath sounds normal. Abdomen: Soft and nontender. Skin: Skin warm and dry. Normal skin color. Normal skin turgor. Extremities: No lower extremity edema. No calf ttp Neuro: Oriented X 3. No motor deficit. No sensory deficit. CN2-12 intact Course Course Course Narrative: This is a Rapid Medical Examination (RME) performed by Sonia Acevedo PA-C in triage. Full HPI, ROS, assessment and treatment plan per primary provider in the Main ED. 29 yo male here for eval of sore throat and odynophagia. seen here on 03/25, negative for covid/flu/rsv/strep. taking naproxen at home, symptoms are worsening. +swelling to right tonsil w/ ? right peritonsilar mass. uvula is midline, controlling secretions and speaking in complete sentences. no nuffled voice. Plan: labs, viral/strep swabs Medical Decision Making Medical Decision Making [facility] Narrative: 29 yo male otherwise healthy worsening sore throat and on exam his uvula is midline and no pain with ROM of neck but his tonsils are swollen with redness and bilateral exudates concerning for acute tonsillitis will dose with steroid x 1 and start on augmentin suspect this is more than a viral pharyngitis. Differential Diagnosis Differential Diagnoses: The differential diagnosis associated with the presentation includes tonsillitis, strep throat, mono Admission/Observation Consideration of admission/observation: Escalation of care including admission/observation considered not toxic, tolerating PO Lab Data [facility] Lab Attestation statement: I reviewed the patient's lab results. 03/28/24 12:49 03/28/24 12:49 Labs: Lab Results 03/28/24 Range/Units 12:49 WBC 13.8 H (4.8-10.8) X10*3/uL RBC 4.58 L (4.60-5.80) X10*6/uL Hgb 14.3 (14.0-18.0) g/dl Hct 41.9 L (42.0-52.0) % MCV 91.5 (80.0-98.0) fL MCH 31.2 (27.0-33.0) pg MCHC 34.1 (31.0-36.0) g/dl RDW 12.3 (11.0-16.0) % Plt Count 250 (160-400) X10*3/uL MPV 10.2 (9.4-12.4) fL Immature Gran % (Auto) 0.3 (0.0-0.4) % Neut % (Auto) 79.9 H (45-73) % Lymph % (Auto) 10.3 L (20-40) % Humphreys % (Auto) 9.0 (2-11) % Eos % (Auto) 0.2 (0-4) % Baso % (Auto) 0.3 (0-2) % Lymph # (Auto) 1.4 (1.2-4.9) X10*3/uL Humphreys # (Auto) 1.2 (0.1-1.2) X10*3/uL Eos # (Auto) 0.0 (0.0-0.4) X10*3/uL Baso # (Auto) 0.0 (0.0-0.2) X10*3/uL Abs Immat Gran (auto) 0.04 H (0.00-0.03) X10*3/uL Absolute Neuts (auto) 11.1 H (2.0-8.3) x10*3/uL Absolute Nucleated RBC 0.000 (0.0-0.012) X10*3/uL Nucleated RBC % (auto) 0.0 (0.0-0.2) /100WBC Sodium 140 (135-145) mmol/L Potassium 3.8 (3.3-5.1) mmol/L Chloride 106 (96-108) mmol/L Carbon Dioxide 25 (22-29) mmol/L Anion Gap 13 (12-20) BUN 12 (9-16) mg/dL Creatinine 0.81 (0.5-1.4) mg/dL Estim Creat Clear Calc 163.0 Estimated GFR > 60 Random Glucose 88 (60-115) mg/dL Calcium 9.7 (8.4-10.2) mg/dL Total Bilirubin 0.9 (0.0-1.0) mg/dL AST 23 (5-37) U/L ALT 37 (0-40) U/L Alkaline Phosphatase 81 (39-117) U/L Total Protein 8.7 H (6.5-8.0) g/dL Albumin 4.5 (3.5-5.0) g/dL Monoscreen Negative (Negative) S. pyogenes GrpA KAREN Negative (Negative) External Record Review External record reviewed: Outpatient record Prescription Management I considered prescription management with: Antibiotic Discharge Plan Discharge Clinical Impression: Acute tonsillitis Qualifiers: Pharyngitis/tonsillitis etiology: unspecified etiology Qualified Code(s): J03.90 - Acute tonsillitis, unspecified Patient Disposition: Home, Self-Care Instructions: Tonsillitis (ED) Additional Instructions: return for worsening symptoms or concerns finish all antibiotics take motrin and tylenol for pain rest and stay hydrated throw toothbrush away after 24 hours On amoxicillin-clavulanate, softer bowel movements are to be expected. Call your provider if you move your bowels more than 4 times a day, your bowel movements are almost all liquid, or you get a rash.? Prescriptions: New amoxicillin-pot clavulanate 875-125 mg tablet 1 tab PO BID Qty: 20 0RF No Action hydrocortisone acetate [Anusol-HC] 25 mg suppository 25 mg VA BID Qty: 12 0RF naproxen 500 mg tablet 500 mg PO BID PRN (Reason: pain) 7 Days Qty: 14 0RF Stand Alone Forms: Work/School Release Print Language: Yakut
[2024-03-28 12:55] LABS: MANUAL DIFF FLAG NO
[2024-03-28 12:57] LABS: Basophils Percent Auto 0.3 % (0-2); Eosinophils Percent Auto 0.2 % (0-4); Hematocrit 41.9 % (42.0-52.0); Hemoglobin 14.3 g/dl (14.0-18.0); Imm Gran Abs Auto 0.04 X10*3/uL (0.00-0.03); Imm Gran Pct Auto 0.3 % (0.0-0.4); Lymphocytes Absolute Auto 1.4 X10*3/uL (1.2-4.9); Lymphocytes Percent Auto 10.3 % (20-40); Mean Corpuscular HGB Conc 34.1 g/dl (31.0-36.0); Mean Corpuscular Hemoglobin 31.2 pg (27.0-33.0); Mean Corpuscular Volume 91.5 fL (80.0-98.0); Mean Platelet Volume 10.2 fL (9.4-12.4); Monocytes Absolute Auto 1.2 X10*3/uL (0.1-1.2); Neutrophils Absolute Auto 11.1 x10*3/uL (2.0-8.3); Neutrophils Percent Auto 79.9 % (45-73); Platelet Count 250 X10*3/uL (160-400); Red Blood Count 4.58 X10*6/uL (4.60-5.80); Red Cell Distribution Width 12.3 % (11.0-16.0); White Blood Count 13.8 X10*3/uL (4.8-10.8)
[2024-03-28 13:09] LABS: IDNOW Serial# 08D9AD1C; Strep A Nucleic Acid Negative (Negative)
[2024-03-28 13:12] LABS: Alanine Aminotransferase 37 U/L (0-40); Albumin Level 4.5 g/dL (3.5-5.0); Alkaline Phosphatase 81 U/L (39-117); Anion Gap 13 (12-20); Aspartate Amino Transferase 23 U/L (5-37); Bilirubin Total 0.9 mg/dL (0.0-1.0); Blood Urea Nitrogen 12 mg/dL (9-16); Calcium 9.7 mg/dL (8.4-10.2); Carbon Dioxide 25 mmol/L (22-29); Chloride 106 mmol/L (96-108); Estimated Glomerular Filt Rate > 60; Glucose Random 88 mg/dL (60-115); Potassium 3.8 mmol/L (3.3-5.1); Sodium 140 mmol/L (135-145); Total Protein 8.7 g/dL (6.5-8.0)
[2024-03-28 13:16] LABS: Monotest Negative (Negative)
[2024-03-28 20:37] VITALS: BP 132/64; PULSE 74; RESP 18; TEMP 36.6; O2SAT 97
[2024-03-28] MEDS: Amoxicillin/Potassium Clav 875 MG TABLET PO (21:11)
[2024-03-28] MEDS: dexAMETHasone sod phosphate 10 MG/ML VIAL PO (21:11)
--- OUTSIDE RECORDS SUMMARY | 2024-03-28 21:14 | XMS_ITS | Clinical Summary ---
Author Organization [facility] Address [address] [place] [address] Phone Care Team Providers Care Reducing System Operator Name Role Phone Physician, No Pcp Primary Care Provider Unavaila ble Allergies No known active allergies Encounters Date Type Department Care Team Description 03/11/2024 7:28 AM EST - 03/11/2024 10:03 AM EST Emergency [facility] Emergency [address] [place] [address] Gonorrhea (Primary Dx) Discharge Disposition: [...] EST Lina HAGAN LAB BLOOD RADHA AGUILAR [facility] [address] [place] [address], * (ABNORMAL) Urinalysis with reflex microscopic and culture (03/11/2024 5:41 AM EST) [facility] Specific [place] Urine 1.030 1.003 - 1.030 LAB URINALYSIS [...] Jesus Alberto Chaves MD LAB URINE ORDERABLES [facility] [address] [place] [address], * Agosto urine culture tube (03/11/2024 5:41 AM EST) Extra Tube Hold for add-ons. 03/11/2024 7:01 AM [facility] Comment:Auto resulted. Urine Urine specimen obtained by clean catch procedure / Unknown Non-blood Collection / Unknown 03/11/2024 5:41 AM EST 03/11/2024 5:47 AM EST Carlos Chaves MD LAB URINE ORDERABLES Performing Organization Address City/[facility]/ZIP Co de Phone Number [facility] [address] [place] [address], [place] [phone] * (ABNORMAL) Chlamydia trachomatis and Neisseria gonorrhoeae molecular study (03/11/2024 5:41 AM EST) Pathologist [facility] Neisseria gonorrhoeae PCR Positive(A) Negative LAB MOLECULAR DIAGNOSTICS METHOD 03/11/2024 9:28 AM EST [facility] Chlamydia trachomatis PCR Negative Negative LAB MOLECULAR DIAGNOSTICS METHOD 03/11/2024 9:28 AM EST [facility] Swab Urine specimen from urethra / Unknown Non-blood Collection / Unknown 03/11/2024 5:41 AM EST 03/11/2024 5:47 AM EST Carlos Chaves MD LAB MICROBIOLOGY - G ENERAL ORDERABLES Performing Organization Address [facility]/ZIP Co de Phone Number [facility] [address] [place] [address], [place] [phone] * Culture urine (03/11/2024 5:41 AM EST) Pathologist [facility] Culture, Urine No growth 03/12/2024 1:42 PM EST [facility] Urine Urine specimen obtained by clean catch procedure / Unknown Non-blood Collection / Unknown 03/11/2024 5:41 AM EST 03/11/2024 6:27 AM EST Carlos Chaves MD LAB MICROBIOLOGY - G ENERAL ORDERABLES Performing Organization Address [facility]/ZIP Co de Phone Number [facility] [address] [place] [address], [place] [phone] from Last 3 Months Care Teams Reducing System Operator Relationship Specialty Start Date End Date Physician, No Pcp PCP - General 03/11/24
--- OUTSIDE RECORDS SUMMARY | 2024-03-28 21:14 | XMS_ITS | Encounter Summary ---
Author Organization [facility] Address [address] [place] [address] Care Team Providers Care Liquor Inspector Name Role Phone Physician, No Pcp Primary Care Provider Unavaila ble Reason for Visit * Reason Comments Male Problem Penile discharge and pain with urination Encounter Details Date Type Department Care Team (Late st Contact Info) Description 03/11/2024 7:28 AM EST - 03/11/2024 10:[address] [facility] Emergency [address] [place] [address] Gonorrhea (Primary Dx) Discharge Disposition: [...] be sent through Care Everywhere. * Gonorrhea (Maltese) documented in this encounter Discharge Disposition Disposition [...] REFLEX MICROSCOPIC AND CULTURE - Abnormal Specific [place] Urine 1.030 pH, Urine 5.5 Leukocytes, Urine [...] Abnormality Status --------- ------ Urinalysis with reflex m...[[id number]] Abnormal Final result Agosto urine culture tube[[id number]] Final result Please view results for these [...] particle agglutination (03/11/2024 8:42 AM EST) Pathologist [facility] T. Pallidum Antibodies Negative Negative LAB CHEMISTRY METHOD 03/11/2024 9:34 AM EST [facility] Blood Venous blood specimen / Unknown Venipuncture / Unknown 03/11/2024 8:42 AM EST 03/11/2024 8:48 AM EST Lina HAGAN LAB BLOOD ORDE LAUREN Performing Organization Address City/[facility]/ZIP Co de Phone Number [facility] [address] [place] [address], * Culture urine (03/11/2024 5:41 AM EST) [facility] Culture, Urine No growth 03/12/2024 1:42 PM EST [facility] Urine Urine specimen obtained by clean catch procedure / Unknown Non-blood Collection / Unknown 03/11/2024 5:41 AM EST 03/11/2024 6:27 AM EST Carlos Chaves MD LAB MICROBIOLOGY - G ENERAL ORDERABLES Performing Organization Address City/[facility]/ZIP Co de Phone Number [facility] [address] [place] [address], [place] [phone] * Agosto urine culture tube (03/11/2024 5:41 AM EST) [facility] Extra Tube Hold for add-ons. 03/11/2024 7:01 AM EST [facility] Comment:Auto resulted. Urine Urine specimen obtained by clean catch procedure / Unknown Non-blood Collection / Unknown 03/11/2024 5:41 AM EST 03/11/2024 5:47 AM EST Scot Jesus Alberto Chaves MD LAB URINE ORDERABLES [facility] [address] [place] [address], [place] [phone] * (ABNORMAL) Urinalysis with reflex microscopic and culture (03/11/2024 5:41 AM EST) Specific [place] Urine 1.030 1.003 - 1.030 LAB URINALYSIS - AUTOMATED METHOD 03/11/2024 6:28 AM [facility] pH, Urine 5.5 5.0 - 8.0 pH LAB URINALYSIS - AUTOMATED METHOD 03/11/2024 6:28 AM [facility] Leukocytes, Urine Large(A) Negative LAB URINALYSIS - AUTOMATED METHOD 03/11/2024 6:28 AM [facility] Nitrite, Urine Negative Negative LAB URINALYSIS - AUTOMATED METHOD 03/11/2024 6:28 AM [facility] Protein, Urine 30(A) <=Trace mg/dL LAB URINALYSIS - AUTOMATED METHOD 03/11/2024 6:28 AM [facility] Glucose, Urine Negative Negative mg/dL LAB URINALYSIS - AUTOMATED METHOD 03/11/2024 6:28 AM [facility] Ketones, Urine Trace(A) Negative mg/dL LAB URINALYSIS - AUTOMATED METHOD 03/11/2024 6:28 AM [facility] Urobilinogen, Urine 1.0 0.2 - 1.0 mg/dL LAB URINALYSIS - AUTOMATED METHOD 03/11/2024 6:28 AM [facility] Bilirubin, Urine Negative Negative LAB URINALYSIS - AUTOMATED METHOD 03/11/2024 6:28 AM [facility] Blood, Urine Trace(A) Negative LAB URINALYSIS - AUTOMATED METHOD 03/11/2024 6:28 AM [facility] RBC, Urine 2.7 0 - 4 /HPF LAB URINALYSIS - AUTOMATED METHOD 03/11/2024 6:28 AM [facility] WBC, Urine 983.2(H) 0 - 4 /HPF LAB URINALYSIS - AUTOMATED METHOD 03/11/2024 6:28 AM [facility] Squamous Epithelial, Urine 9 0 - 60 /LPF LAB URINALYSIS - AUTOMATED METHOD 03/11/2024 6:28 AM [facility] Bacteria, Urine Negative Negative /HPF LAB URINALYSIS - AUTOMATED METHOD 03/11/2024 6:28 AM [facility] Hyaline Casts, Urine 0.8 0 - 3 /LPF LAB URINALYSIS - AUTOMATED METHOD 03/11/2024 6:28 AM [facility] Urine Urine specimen obtained by clean catch procedure / Unknown Non-blood Collection / Unknown 03/11/2024 5:41 AM EST 03/11/2024 5:47 AM EST Carlos Chaves MD LAB URINE ORDERABLES [facility] [address] [place] [address], * (ABNORMAL) Chlamydia trachomatis and Neisseria gonorrhoeae molecular study (03/11/2024 5:41 AM EST) Neisseria gonorrhoeae PCR Positive(A) Negative LAB MOLECULAR DIAGNOSTICS METHOD 03/11/2024 9:28 AM EST [facility] Chlamydia trachomatis PCR Negative Negative LAB MOLECULAR DIAGNOSTICS METHOD 03/11/2024 9:28 AM [facility] Swab Urine specimen from urethra / Unknown Non-blood Collection / Unknown 03/11/2024 5:41 AM EST 03/11/2024 5:47 AM EST Carlos Chaves MD LAB MICROBIOLOGY - G ENERAL ORDERABLES [facility] [address] [place] [address], documented in this encounter Visit Diagnoses Diagnosis [...] 03/11/2024 documented in this encounter Care Teams Liquor Inspector Relationship Specialty Start Date End Date Physician, No Pcp PCP - General 03/11/24 documented as of this encounter
--- OUTSIDE RECORDS SUMMARY | 2024-03-28 21:14 | XMS_ITS | Clinical Summary ---
Author Organization [facility] Address [address] [place] [address] [address] [place] [address] Care Team Providers Care Payroll Bookkeeper Name Role Phone Unavailable Primary Care Provider [...] patient's age to complete this topic Insurance [facility] C3
[2024-03-28 21:27] VITALS: BP 132/59; PULSE 72; RESP 16; TEMP 36.7; O2SAT 98
== END 2024-03-28 21:27 | disposition home or self-care (01) ==
PROVIDERS: Physician Assistant Medical; Emergency Provider Emergency Medicine
DX: J03.90 Acute tonsillitis, unspecified (principal)
CPT/HCPCS: 36415; 80053; 85025; 86308; 87651; 99283; 99284; J1100